=== PATIENT | male | born 2000 | race Caucasian/White ===

== ENCOUNTER 2022-07-18 04:59 | Emergency (ER) | payer SELFPAY ==
[2022-07-18 05:41] VITALS: BP 112/64; PULSE 100; RESP 16; TEMP 38.6; O2SAT 100; BMI 16.7
[2022-07-18] MEDS: Acetaminophen 325 MG TABLET 975 MG PO (07:11)
[2022-07-18 07:20] VITALS: TEMP 38.9
[2022-07-18 08:00] VITALS: TEMP 37.4
[2022-07-18 08:00] LABS: Influenza A PCR NEGATIVE (Negative); Influenza B PCR NEGATIVE (Negative); Resp Syncy Virus RNA Qual PCR NEGATIVE (Negative); SARS COV2 PCR INHOUSE NEGATIVE (Negative)
--- NOTE | 2022-07-18 09:03 | ED_ITS ---
HPI - Fever General Chief Complaint: Fever Stated Complaint: fever even after medication, flu like Time Seen by Provider: 07/18/22 09:02 Source: patient Mode of arrival: ambulatory Limitations: no limitations History of Present Illness HPI Narrative: 21-year-old male presents to the emergency department for fever and headache. Patient states fever did come down after taking ibuprofen and he came to the ER. Patient had been in the ER for 4 hours prior to being seen. Patient had swab sent he is flu RSV and COVID negative. Patient denies chest pain or cough patient otherwise looks well has normal vitals his fever has defervesced patient has no other complaints he states his headache is improving. MD elicited complaint: fever Related Data Allergies Allergy/AdvReac Type Severity Reaction Status Date / Time No Known Allergies Allergy Verified 07/18/22 05:44 Review of Systems Review of Systems: Review of systems: General: Patient denies any fever chills recent illness or falls Musculoskeletal: Denies back pain or body aches or other injuries HEENT: denies headache, runny nose, ear pain Respiratory: denies shortness of breath, cough Cardiovascular: no chest pain or palpitations : denies dysuria, frequency Abdomen: no nausea vomiting denies abdominal pain Extremities: no swelling, no pain Skin: no diaphoresis Yes all other systems are reviewed and are negative PMFSH Social History Social History Advance Directives: No Physical Exam Vital Signs: Vital Signs: Last Vital Signs Temp 99.3 F 07/18/22 08:00 Pulse 100 07/18/22 05:41 Resp 16 07/18/22 05:41 BP 112/64 07/18/22 05:41 Pulse Ox 100 07/18/22 05:41 O2 Del Method 07/18/22 05:41 BMI result Body Mass Index 16.7 General: Well-appearing well-nourished in no signs of distress HEENT: Normocephalic atraumatic Neck: No signs of JVD, no masses no tenderness or lymphadenopathy Cardiovascular: Regular rate and rhythm Respiratory: Clear to auscultation bilaterally Abdomen: Soft nontender no masses rectal exam performed guiac negative director of quality confirmed. Extremities: Normal pedal pulses no signs of edema Skin: Dry warm no rashes Back: No tenderness full ROM Medications Administered Discontinued Medications Generic Name Dose Route Start Last Admin Trade Name Freq PRN Reason Stop Dose Admin Acetaminophen 975 mg 07/18/22 07:04 07/18/22 07:11 Acetaminophen 325 Mg Tablet PO 07/18/22 07:05 975 mg ONCE ONE Administration Medical Decision Making Medical Decision Making [facility] Narrative: Well-appearing male viral syndrome flu and COVID are negative all those are not perfect test I educated the patient follow-up Tylenol and ibuprofen for his fever Differential Diagnosis Differential Diagnoses: The differential diagnosis associated with the presentation includes Influenza COVID other viral illness including RSV patient did not look toxic the patient has his headache is here his vitals stabilized further workup that is necessary Lab Data Labs: Lab Results 07/18/22 Range/Units 07:10 Influenza Type A (PCR) NEGATIVE (Negative) Influenza Type B (PCR) NEGATIVE (Negative) RSV RNA Qual (PCR) NEGATIVE (Negative) SARS-CoV-2 RNA (RT-PCR) NEGATIVE (Negative) Discharge Plan Discharge Clinical Impression: Viral infection Patient Disposition: Home, Self-Care Instructions: Viral Syndrome (ED) Additional Instructions: Please stay hydrated take tylenol and or ibuprofen for your headache. If you have any other concerns please return to the ED.
[2022-07-18] MEDS: Ketorolac Tromethamine 30 MG/ML VIAL 15 MG IM (09:23)
== END 2022-07-18 09:27 | disposition home or self-care (01) ==
PROVIDERS: Emergency Provider Student in an Organized Health Care Education/Training Program
DX: B34.9 Viral infection, unspecified (principal); R50.9 Fever, unspecified; Z20.822 Contact with and (suspected) exposure to COVID-19
CPT/HCPCS: 0241U; 96372; 99284; J1885

== ENCOUNTER 2022-07-20 13:38 | Emergency (ER) | payer OTHER, SELFPAY ==
--- NOTE | 2022-07-20 13:45 | ED_ITS ---
HPI - General Adult General Chief complaint: Skin/Abscess/Foreign Body <LUPE Bassett - Last Filed: 07/20/22 13:52> Stated complaint: rash quest allergic reaction medication <LUPE Bassett - Last Filed: 07/20/22 13:52> Time Seen by Provider: 07/20/22 16:09 <LUPE Bassett - Last Filed: 07/20/22 13:52> Source: patient <Idalia Mendez NP - Last Filed: 07/21/22 01:02> Mode of arrival: ambulatory <Idalia Mendez NP - Last Filed: 07/21/22 01:02> Limitations: no limitations <Idalia Mendez NP - Last Filed: 07/21/22 01:02> History of Present Illness HPI narrative: 21-year-old male presents with full body rash that started 2 days ago. He does have some upper respiratory symptoms, sore throat, photosensitivity, and headache. He was evaluated in this emergency department 2 days ago and diagnosed with a viral syndrome. <Idalia Mendez NP - Last Filed: 07/21/22 01:02> Onset (ago): day(s) (2) <Idalia Mendez NP - Last Filed: 07/21/22 01:02> Location: head, neck, chest, back, abdomen, left, right, upper extremity and lower extremity <Idalia Mendez NP - Last Filed: 07/21/22 01:02> Severity: moderate <Idalia Mendez NP - Last Filed: 07/21/22 01:02> Severity scale (1-10): 7 <Idalia Mendez NP - Last Filed: 07/21/22 01:02> Quality: aching <Idalia Mendez NP - Last Filed: 07/21/22 01:02> Pain Consistency: constant <Idalia Mendez NP - Last Filed: 07/21/22 01:02> Relieving factors: none <Idalia Mendez NP - Last Filed: 07/21/22 01:02> Exacerbating factors: movement <Idalia Mendez NP - Last Filed: 07/21/22 01:02> Associated symptoms: cough, headaches, malaise and rash <Idalia Mendez NP - Last Filed: 07/21/22 01:02> Treatments prior to arrival: none <Idalia Mendez NP - Last Filed: 07/21/22 01:02> Related Data Home medications: Previous Rx's Medication Instructions Recorded cefuroxime axetil 500 mg tablet 500 mg PO Q12H 10 days #20 tabs 07/20/22 <LUPE Bassett - Last Filed: 07/20/22 13:52> Allergies/adverse reactions: Allergies Allergy/AdvReac Type Severity Reaction Status Date / Time Penicillins [PCN] Allergy Unknown Verified 07/20/22 13:45 <LUPE Bassett - Last Filed: 07/20/22 13:52> Review of Systems Review of Systems: Constitutional: positive Fever, positive Chills, positive fatigue, positive Malaise ENT/Mouth: positive sore throat, positive runny nose Eyes: No Discharge Cardiovascular: No Chest Pain, No SOB Respiratory: Positive Cough, No Sputum, No Wheezing, No Dyspnea Gastrointestinal: No Nausea, No Vomiting, No Diarrhea Musculoskeletal: positive Myalgia Skin: Positive diffuse full-body rash Neuro: Positive Headache <Idalia Mendez NP - Last Filed: 07/21/22 01:02> Yes all other systems are reviewed and are negative <Idalia Mendez NP - Last Filed: 07/21/22 01:02> [facility] Past Medical History Attestation statement: The following information was validated with the patient. <Idalia Mendez NP - Last Filed: 07/21/22 01:02> Source: old records reviewed <Idalia Mendez NP - Last Filed: 07/21/22 01:02> Social History Social History: Social History Advance Directives: No Advance Directives Information Provided: No <LUPE Bassett - Last Filed: 07/20/22 13:52> Physical Exam ED Vital Signs: Vital Signs - 24 hr 07/20/22 13:46 07/20/22 16:47 Temperature 97.1 F 98.9 F Pulse Rate 88 93 Respiratory Rate 18 20 Blood Pressure 121/68 104/71 Pulse Oximetry 97 99 Oxygen Delivery Method Room Air Room Air BMI result Body Mass Index 18.3 <LUPE Bassett Last Filed: 07/20/22 13:52> Vital Signs - 24 hr 07/20/22 13:46 07/20/22 16:47 Temperature 97.1 F 98.9 F Pulse Rate 88 93 Respiratory Rate 18 20 Blood Pressure 121/68 104/71 Pulse Oximetry 97 99 Oxygen Delivery Method Room Air Room Air BMI result Body Mass Index 18.3 <Idalia Mendez NP - Last Filed: 07/21/22 01:02> Appearance: Alert. Oriented X3. Mild distress. Eyes: Pupils equal, round and reactive to light. ENT: Pharynx erythematous bilateral tonsillar exudates. No tonsillar swelling. Uvula within normal limits. Neck: Normal inspection. Neck supple. No vertebral tenderness. No nuchal rigidity. No cervical lymphadenopathy. Full range of motion to the neck. CVS: Normal heart rate and rhythm. Pulses normal. Respiratory: No respiratory distress. Breath sounds normal. Abdomen: Soft and nontender. Skin: Refer to photographic evidence. Extremities: No lower extremity edema. Gait well-balanced well coordinated. Neuro: No motor deficit. No sensory deficit. Cranial nerves 2-12 intact. <CASSANDRA Jasso Last Filed: 07/21/22 01:02> Course Course Course Narrative: RME performed by Marti Hubbard PA-C. Patient is a 21 year old male presenting to the ED with diffuse body rash, sore throat, and feeling generally unwell. Patient was seen here 2 days ago and discharged with a viral illness. Labs and swabs ordered. Patient placed back in waiting room pending results and room availability. <LUPE Bassett Last Filed: 07/20/22 13:52> RME performed by Marti Hubbard PA-C. Patient is a 21 year old male presenting to the ED with diffuse body rash, sore throat, and feeling generally unwell. Patient was seen here 2 days ago and discharged with a viral illness. Labs and swabs ordered. Patient placed back in waiting room pending results and room availability. 16:20 patient presents with a classic looking diffuse papular erythema, slightly raised consistent with scarlet fever verses strep. Patient is allergic to penicillins, will give cefuroxime and Benadryl. Added on Monospot testing. Patient is negative for rapid strep however pharyngeal exam indicates bilateral tonsillar swelling with exudates and erythema to both tonsils and pharynx. Lung sounds are clear to auscultation all lobes, abdomen soft nontender, no hepatosplenomegaly noted. Patient does report a headache, has full range of motion to his neck, no vertebral tenderness, no meningeal signs, no nuchal rigidity. Low likelihood of meningitis at this time. Plan of care to discharge home. Patient verbalized. Verbalized understanding of signs symptoms indicating need for emergent intervention. <Idalia Mendez NP - Last Filed: 07/21/22 01:02> Medications Administered Discontinued Medications Generic Name Dose Route Start Last Admin Trade Name Freq PRN Reason Stop Dose Admin Acetaminophen 650 mg 07/20/22 14:02 07/20/22 14:06 Acetaminophen 325 Mg Tablet PO 07/20/22 14:03 650 mg ONCE ONE Administration Acetaminophen 650 mg 07/20/22 16:28 07/20/22 17:19 Acetaminophen 325 Mg Tablet PO 07/20/22 16:29 Not Given ONCE ONE Cefuroxime Axetil 500 mg 07/20/22 16:23 07/20/22 16:46 Cefuroxime Axetil 500 Mg Tablet PO 07/20/22 16:24 500 mg ONCE ONE Administration Diphenhydramine HCl 50 mg 07/20/22 16:28 07/20/22 16:46 Diphenhydramine Hcl 25 Mg Capsule PO 07/20/22 16:29 50 mg ONCE ONE Administration <LUPE Bassett - Last Filed: 07/20/22 13:52> Medications Administered Discontinued Medications Generic Name Dose Route Start Last Admin Trade Name Freq PRN Reason Stop Dose Admin Acetaminophen 650 mg 07/20/22 14:02 07/20/22 14:06 Acetaminophen 325 Mg Tablet PO 07/20/22 14:03 650 mg ONCE ONE Administration Acetaminophen 650 mg 07/20/22 16:28 07/20/22 17:19 Acetaminophen 325 Mg Tablet PO 07/20/22 16:29 Not Given ONCE ONE Cefuroxime Axetil 500 mg 07/20/22 16:23 07/20/22 16:46 Cefuroxime Axetil 500 Mg Tablet PO 07/20/22 16:24 500 mg ONCE ONE Administration Diphenhydramine HCl 50 mg 07/20/22 16:28 07/20/22 16:46 Diphenhydramine Hcl 25 Mg Capsule PO 07/20/22 16:29 50 mg ONCE ONE Administration <Idalia Mendez NP - Last Filed: 07/21/22 01:02> Medical Decision Making Differential Diagnosis Differential Diagnoses: The differential diagnosis associated with the presentation includes <Idalia Mendez NP - Last Filed: 07/21/22 01:02> Scarlet fever, strep, [place] Ash, viral syndrome <Idalia Mendez NP - Last Filed: 07/21/22 01:02> Admission/Observation Consideration of admission/observation: Escalation of care including admission/observation considered <Idalia Mendez NP - Last Filed: 07/21/22 01:02> Admission not required or considered <Idalia Mendez NP - Last Filed: 07/21/22 01:02> Lab Data MDM Lab Attestation statement: I reviewed the patient's lab results. <Idalia Mendez NP - Last Filed: 07/21/22 01:02> Result Diagrams: 07/20/22 Unknown 07/20/22 Unknown <LUPE Bassett - Last Filed: 07/20/22 13:52> Labs: Lab Results 07/20/22 07/20/22 07/20/22 Range/Units Unknown Unknown Unknown WBC 3.7 L (4.8-10.8) X10*3/uL RBC 4.94 (4.60-5.80) X10*6/uL Hgb 15.3 (14.0-18.0) g/dl Hct 45.8 (42.0-52.0) % MCV 92.7 (80.0-98.0) fL MCH 31.0 (27.0-33.0) pg MCHC 33.4 (31.0-36.0) g/dl RDW 11.4 (11.0-16.0) % Plt Count 165 (160-400) X10*3/uL MPV 9.4 (9.4-12.4) fL Immature Gran % (Auto) 0.3 (0.0-0.4) % Neut % (Auto) 82.8 H (45-73) % Lymph % (Auto) 13.4 L (20-40) % Travis % (Auto) 3.2 (2-11) % Eos % (Auto) 0.0 (0-4) % Baso % (Auto) 0.3 (0-2) % Lymph # (Auto) 0.5 L (1.2-4.9) X10*3/uL Travis # (Auto) 0.1 (0.1-1.2) X10*3/uL Eos # (Auto) 0.0 (0.0-0.4) X10*3/uL Baso # (Auto) 0.0 (0.0-0.2) X10*3/uL Abs Immat Gran (auto) 0.01 (0.00-0.03) X10*3/uL Absolute Neuts (auto) 3.1 (2.0-8.3) x10*3/uL Absolute Nucleated RBC 0.000 (0.0-0.012) X10*3/uL Nucleated RBC % (auto) 0.0 (0.0-0.2) /100WBC ESR 6 (0-15) MM/HR Sodium 137 (135-145) mmol/L Potassium 4.0 (3.3-5.1) mmol/L Chloride 102 (96-108) mmol/L Carbon Dioxide 26 (22-29) mmol/L Anion Gap 13 (12-20) BUN 8 L (9-16) mg/dL Creatinine 0.94 (0.5-1.4) mg/dL Estim Creat Clear Calc 102.3 Estimated GFR > 60 Random Glucose 98 (60-115) mg/dL Calcium 9.1 (8.4-10.2) mg/dL Total Bilirubin 0.7 (0.0-1.0) mg/dL AST 24 (5-37) U/L ALT 12 (0-40) U/L Alkaline Phosphatase 88 (39-117) U/L C-Reactive Protein 2.02 H (< or = 0.50) mg/dL Total Protein 6.9 (6.5-8.0) g/dL Albumin 4.3 (3.5-5.0) g/dL Influenza Type A (PCR) (Negative) Influenza Type B (PCR) (Negative) RSV RNA Qual (PCR) (Negative) SARS-CoV-2 RNA (RT-PCR) (Negative) S. pyogenes GrpA SOFIA (Negative) 07/20/22 07/20/22 Range/Units Unknown Unknown WBC (4.8-10.8) X10*3/uL RBC (4.60-5.80) X10*6/uL Hgb (14.0-18.0) g/dl Hct (42.0-52.0) % MCV (80.0-98.0) fL MCH (27.0-33.0) pg MCHC (31.0-36.0) g/dl RDW (11.0-16.0) % Plt Count (160-400) X10*3/uL MPV (9.4-12.4) fL Immature Gran % (Auto) (0.0-0.4) % Neut % (Auto) (45-73) % Lymph % (Auto) (20-40) % Travis % (Auto) (2-11) % Eos % (Auto) (0-4) % Baso % (Auto) (0-2) % Lymph # (Auto) (1.2-4.9) X10*3/uL Travis # (Auto) (0.1-1.2) X10*3/uL Eos # (Auto) (0.0-0.4) X10*3/uL Baso # (Auto) (0.0-0.2) X10*3/uL Abs Immat Gran (auto) (0.00-0.03) X10*3/uL Absolute Neuts (auto) (2.0-8.3) x10*3/uL Absolute Nucleated RBC (0.0-0.012) X10*3/uL Nucleated RBC % (auto) (0.0-0.2) /100WBC ESR (0-15) MM/HR Sodium (135-145) mmol/L Potassium (3.3-5.1) mmol/L Chloride (96-108) mmol/L Carbon Dioxide (22-29) mmol/L Anion Gap (12-20) BUN (9-16) mg/dL Creatinine (0.5-1.4) mg/dL Estim Creat Clear Calc Estimated GFR Random Glucose (60-115) mg/dL Calcium (8.4-10.2) mg/dL Total Bilirubin (0.0-1.0) mg/dL AST (5-37) U/L ALT (0-40) U/L Alkaline Phosphatase (39-117) U/L C-Reactive Protein (< or = 0.50) mg/dL Total Protein (6.5-8.0) g/dL Albumin (3.5-5.0) g/dL Influenza Type A (PCR) NEGATIVE (Negative) Influenza Type B (PCR) NEGATIVE (Negative) RSV RNA Qual (PCR) NEGATIVE (Negative) SARS-CoV-2 RNA (RT-PCR) NEGATIVE (Negative) S. pyogenes GrpA SOFIA Negative (Negative) <LUPE Bassett - Last Filed: 07/20/22 13:52> Lab Results 07/20/22 07/20/22 07/20/22 Range/Units Unknown Unknown Unknown WBC 3.7 L (4.8-10.8) X10*3/uL RBC 4.94 (4.60-5.80) X10*6/uL Hgb 15.3 (14.0-18.0) g/dl Hct 45.8 (42.0-52.0) % MCV 92.7 (80.0-98.0) fL MCH 31.0 (27.0-33.0) pg MCHC 33.4 (31.0-36.0) g/dl RDW 11.4 (11.0-16.0) % Plt Count 165 (160-400) X10*3/uL MPV 9.4 (9.4-12.4) fL Immature Gran % (Auto) 0.3 (0.0-0.4) % Neut % (Auto) 82.8 H (45-73) % Lymph % (Auto) 13.4 L (20-40) % Travis % (Auto) 3.2 (2-11) % Eos % (Auto) 0.0 (0-4) % Baso % (Auto) 0.3 (0-2) % Lymph # (Auto) 0.5 L (1.2-4.9) X10*3/uL Travis # (Auto) 0.1 (0.1-1.2) X10*3/uL Eos # (Auto) 0.0 (0.0-0.4) X10*3/uL Baso # (Auto) 0.0 (0.0-0.2) X10*3/uL Abs Immat Gran (auto) 0.01 (0.00-0.03) X10*3/uL Absolute Neuts (auto) 3.1 (2.0-8.3) x10*3/uL Absolute Nucleated RBC 0.000 (0.0-0.012) X10*3/uL Nucleated RBC % (auto) 0.0 (0.0-0.2) /100WBC ESR 6 (0-15) MM/HR Sodium 137 (135-145) mmol/L Potassium 4.0 (3.3-5.1) mmol/L Chloride 102 (96-108) mmol/L Carbon Dioxide 26 (22-29) mmol/L Anion Gap 13 (12-20) BUN 8 L (9-16) mg/dL Creatinine 0.94 (0.5-1.4) mg/dL Estim Creat Clear Calc 102.3 Estimated GFR > 60 Random Glucose 98 (60-115) mg/dL Calcium 9.1 (8.4-10.2) mg/dL Total Bilirubin 0.7 (0.0-1.0) mg/dL AST 24 (5-37) U/L ALT 12 (0-40) U/L Alkaline Phosphatase 88 (39-117) U/L C-Reactive Protein 2.02 H (< or = 0.50) mg/dL Total Protein 6.9 (6.5-8.0) g/dL Albumin 4.3 (3.5-5.0) g/dL Influenza Type A (PCR) (Negative) Influenza Type B (PCR) (Negative) RSV RNA Qual (PCR) (Negative) SARS-CoV-2 RNA (RT-PCR) (Negative) S. pyogenes GrpA SOFIA (Negative) 07/20/22 07/20/22 Range/Units Unknown Unknown WBC (4.8-10.8) X10*3/uL RBC (4.60-5.80) X10*6/uL Hgb (14.0-18.0) g/dl Hct (42.0-52.0) % MCV (80.0-98.0) fL MCH (27.0-33.0) pg MCHC (31.0-36.0) g/dl RDW (11.0-16.0) % Plt Count (160-400) X10*3/uL MPV (9.4-12.4) fL Immature Gran % (Auto) (0.0-0.4) % Neut % (Auto) (45-73) % Lymph % (Auto) (20-40) % Travis % (Auto) (2-11) % Eos % (Auto) (0-4) % Baso % (Auto) (0-2) % Lymph # (Auto) (1.2-4.9) X10*3/uL Travis # (Auto) (0.1-1.2) X10*3/uL Eos # (Auto) (0.0-0.4) X10*3/uL Baso # (Auto) (0.0-0.2) X10*3/uL Abs Immat Gran (auto) (0.00-0.03) X10*3/uL Absolute Neuts (auto) (2.0-8.3) x10*3/uL Absolute Nucleated RBC (0.0-0.012) X10*3/uL Nucleated RBC % (auto) (0.0-0.2) /100WBC ESR (0-15) MM/HR Sodium (135-145) mmol/L Potassium (3.3-5.1) mmol/L Chloride (96-108) mmol/L Carbon Dioxide (22-29) mmol/L Anion Gap (12-20) BUN (9-16) mg/dL Creatinine (0.5-1.4) mg/dL Estim Creat Clear Calc Estimated GFR Random Glucose (60-115) mg/dL Calcium (8.4-10.2) mg/dL Total Bilirubin (0.0-1.0) mg/dL AST (5-37) U/L ALT (0-40) U/L Alkaline Phosphatase (39-117) U/L C-Reactive Protein (< or = 0.50) mg/dL Total Protein (6.5-8.0) g/dL Albumin (3.5-5.0) g/dL Influenza Type A (PCR) NEGATIVE (Negative) Influenza Type B (PCR) NEGATIVE (Negative) RSV RNA Qual (PCR) NEGATIVE (Negative) SARS-CoV-2 RNA (RT-PCR) NEGATIVE (Negative) S. pyogenes GrpA SOFIA Negative (Negative) <Idalia Mendez NP - Last Filed: 07/21/22 01:02> Independent Historian Clinical information obtained from an independent historian. History obtained from or confirmed by: Spouse <Idalia Mendez NP - Last Filed: 07/21/22 01:02> External Record Review External record reviewed: Outpatient record <Idalia Mendez NP - Last Filed: 07/21/22 01:02> Prescription Management I considered prescription management with: Pain Medication and Antibiotic <Idalia Mendez NP - Last Filed: 07/21/22 01:02> Discharge Plan Discharge Clinical Impression: Scarlet fever <LUPE Bassett - Last Filed: 07/20/22 13:52> Patient Disposition: Home, Self-Care <LUPE Bassett - Last Filed: 07/20/22 13:52> Instructions: Scarlet Fever (ED) <LUPE Bassett - Last Filed: 07/20/22 13:52> Additional Instructions: Lo evaluaron por un sarpullido compatible con brendon infecci?n estreptoc?cica. [place] cefuroxima 500 mg dos veces al d?a elias los pr?ximos 10 d?as. [place] Benadryl 50 mg cada 8 horas seg?n sea necesario para la picaz?n. [place] Tylenol 650 mg cada 6 horas y Motrin 600 mg cada 6 horas seg?n sea necesario para controlar el dolor y la fiebre. Considere jason estos medicamentos con 3 horas de diferencia para controlar el dolor y la fiebre cada 3 horas. Anote a qu? hora lorraine estos medicamentos para evitar brendon sobredosis accidental. [place] por elegir daisy departamento de emergencias para cabrera evaluaci?n. Por favor, muna un seguimiento con el m?dico de atenci?n primaria seg?n sea necesario. Regrese al departamento de emergencias por cualquier s?ntoma nuevo, preocupante o que empeore. You were evaluated for a rash consistent with streptococcal infection. Please take cefuroxime 500 mg twice a day for the next 10 days. Take Benadryl 50 mg every 8 hours as needed for itching. Alternate Tylenol 650 mg every 6 hours and Motrin 600 mg every 6 hours as needed for pain and fever management. Consider taking these medications 3 hours apart so you have pain and fever management every 3 hours. Write down what time you take these medications to prevent accidental overdose. Thank you for choosing this emergency department for evaluation. Please follow-up with primary care physician as needed. Return to the emergency department for any new, concerning, or worsening symptoms. <LUPE Bassett - Last Filed: 07/20/22 13:52> Prescriptions: New cefuroxime axetil 500 mg tablet 500 mg PO Q12H 10 Days Qty: 20 0RF <LUPE Bassett - Last Filed: 07/20/22 13:52> Stand Alone Forms: Work/School Release <LUPE Bassett - Last Filed: 07/20/22 13:52> Interventions: ED Discharge Assessment Last Done: 07/20/22 17:44 <LUPE Bassett - Last Filed: 07/20/22 13:52> Discharge Date/Time: 07/20/22 17:44 <LUPE Bassett - Last Filed: 07/20/22 13:52>
[2022-07-20 13:46] VITALS: BP 121/68; PULSE 88; RESP 18; TEMP 36.2; O2SAT 97; BMI 18.3
[2022-07-20 14:06] LABS: MANUAL DIFF FLAG NO
[2022-07-20] MEDS: Acetaminophen 325 MG TABLET 650 MG PO (14:06)
[2022-07-20 14:07] LABS: Basophils Percent Auto 0.3 % (0-2); Hematocrit 45.8 % (42.0-52.0); Hemoglobin 15.3 g/dl (14.0-18.0); Imm Gran Abs Auto 0.01 X10*3/uL (0.00-0.03); Imm Gran Pct Auto 0.3 % (0.0-0.4); Lymphocytes Absolute Auto 0.5 X10*3/uL (1.2-4.9); Lymphocytes Percent Auto 13.4 % (20-40); Mean Corpuscular HGB Conc 33.4 g/dl (31.0-36.0); Mean Corpuscular Volume 92.7 fL (80.0-98.0); Mean Platelet Volume 9.4 fL (9.4-12.4); Monocytes Absolute Auto 0.1 X10*3/uL (0.1-1.2); Monocytes Percent Auto 3.2 % (2-11); Neutrophils Absolute Auto 3.1 x10*3/uL (2.0-8.3); Neutrophils Percent Auto 82.8 % (45-73); Platelet Count 165 X10*3/uL (160-400); Red Blood Count 4.94 X10*6/uL (4.60-5.80); Red Cell Distribution Width 11.4 % (11.0-16.0); White Blood Count 3.7 X10*3/uL (4.8-10.8)
[2022-07-20 14:17] LABS: IDNOW Serial# 6674DD1D; Strep A Nucleic Acid Negative (Negative)
[2022-07-20 14:23] LABS: Alanine Aminotransferase 12 U/L (0-40); Albumin Level 4.3 g/dL (3.5-5.0); Alkaline Phosphatase 88 U/L (39-117); Anion Gap 13 (12-20); Aspartate Amino Transferase 24 U/L (5-37); Bilirubin Total 0.7 mg/dL (0.0-1.0); Blood Urea Nitrogen 8 mg/dL (9-16); C Reactive Protein 2.02 mg/dL (< or = 0.50); Calcium 9.1 mg/dL (8.4-10.2); Carbon Dioxide 26 mmol/L (22-29); Chloride 102 mmol/L (96-108); Creatinine Clr Calc Pharmacy 102.3; Estimated Glomerular Filt Rate > 60; Glucose Random 98 mg/dL (60-115); Sodium 137 mmol/L (135-145); Total Protein 6.9 g/dL (6.5-8.0)
[2022-07-20 14:50] LABS: Influenza A PCR NEGATIVE (Negative); Influenza B PCR NEGATIVE (Negative); Resp Syncy Virus RNA Qual PCR NEGATIVE (Negative); SARS COV2 PCR INHOUSE NEGATIVE (Negative)
[2022-07-20 14:54] LABS: Erythrocyte Sedimentation Rate 6 MM/HR (0-15)
[2022-07-20] MEDS: diphenhydrAMINE HCL 25 MG CAPSULE 50 MG PO (16:46)
[2022-07-20 16:47] VITALS: BP 104/71; PULSE 93; RESP 20; TEMP 37.2; O2SAT 99
== END 2022-07-20 17:44 | disposition home or self-care (01) ==
PROVIDERS: Physician Assistant Medical; Emergency Provider Emergency Medicine
DX: A38.9 Scarlet fever, uncomplicated (principal); Z20.822 Contact with and (suspected) exposure to COVID-19; Z20.828 Contact with and (suspected) exposure to other viral communicable diseases
CPT/HCPCS: 0241U; 80053; 85025; 85652; 86140; 87651; 99283; 99284

== ENCOUNTER 2023-05-14 12:35 | Emergency (ER) | payer MEDICAID, SELFPAY ==
[2023-05-14 13:31] VITALS: BP 118/68; PULSE 78; RESP 16; TEMP 36.9; O2SAT 98; BMI 15.9
--- NOTE | 2023-05-14 13:32 | ED_ITS ---
HPI - URI/Sore Throat General Chief Complaint: Dental/Oral Stated Complaint: ulcer back in mouth Time Seen by Provider: 05/14/23 14:05 Source: patient Mode of arrival: ambulatory Limitations: no limitations History of Present Illness HPI Narrative: Patient is a 22-year-old male with no significant PMH presenting complaint of an ulcer in the back of my throat x 1.5 weeks with associated sore throat and headache. Has tried tyelnol and ibuprofen with minimal relief. Tolerating solids with some pain and liquids well. No recent travel or sick contacts. UTD on immunizations. Denies smoking. Denies fever, chills, myalgias, fatigue, dizziness, weakness, dysphagia, trouble breathing, chest pain, shortness of breath, abdominal pain, and N/V/D. Related Data Previous Rx's Medication Instructions Recorded cefuroxime axetil 500 mg tablet 500 mg PO Q12H 10 days #20 tabs 07/20/22 naproxen 500 mg tablet 500 mg PO BID #14 tabs 05/14/23 Allergies Allergy/AdvReac Type Severity Reaction Status Date / Time Penicillins [PCN] Allergy Unknown Verified 07/20/22 13:45 Review of Systems Review of Systems: Constitutional : No Weight loss, No Fever, No Chills, No Fatigue, No Malaise ENT/Mouth : No sore throat, No Rhinorrhea Eyes: No Eye Pain, No Swelling, No Redness Cardiovascular : No Chest Pain, No SOB, No Dyspnea on Exertion, No Orthopnea, No Edema, No Palpitations Respiratory : No Cough, No Sputum, No Wheezing Gastrointestinal : No Nausea, No Vomiting, No Diarrhea, No Constipation, No abdominal Pain, No Hematochezia, No Melena Genitourinary : No Dysuria, No Urinary Frequency, No Hematuria, Musculoskeletal : No joint pain, No Myalgias, No Joint Swelling Skin : No Skin Lesions, No rash Neuro : No Weakness, No Numbness, No Dizziness, No Headache Yes all other systems are reviewed and are negative [facility] Past Medical History Attestation statement: The following information was validated with the patient. Source: old records reviewed and nursing notes reviewed Social History Social History Advance Directives: No Advance Directives Information Provided: No Physical Exam Vital Signs: Vital Signs: Last Vital Signs Temp 98.4 F 05/14/23 13:31 Pulse 78 05/14/23 13:31 Resp 16 05/14/23 13:31 BP 118/68 05/14/23 13:31 Pulse Ox 98 05/14/23 13:31 O2 Del Method Room Air 05/14/23 13:31 BMI result Body Mass Index 15.9 vss Appearance: Alert.? Oriented X3.? No acute distress.? Head: Normocephalic, atraumatic, no step-offs or deformities Eyes: Pupils equal, round and reactive to light.? ENT: Pharynx erythematous.?Erupting 3rd molar on the left lower jaw. External ears normal, TMs normal bilaterally and EAC's normal. No pain with manipulation of external ears bilaterally. No mastoid tenderness. Neck: Anterior cervical lymphadenopathy. Normal inspection.? Neck supple.? CVS: Normal heart rate and rhythm.? Pulses normal.? Respiratory: No respiratory distress.? Breath sounds normal.? Abdomen: Soft and nontender.? Skin: Skin warm and dry.? Normal skin color.? Normal skin turgor.? Extremities: No lower extremity edema.? No calf ttp. 5/5 strength to bilateral upper and lower extremities Back: No midline tenderness, no C-spine tenderness, full range of motion, no CVA tenderness bilaterally Neuro: Oriented X 3.? No motor deficit.? No sensory deficit. Course Course Course Narrative: RME - 22 yo male presenting for evaluation of an ulcer in the back of my throat for the last 1.5 weeks. He also reports a sore throat. Exam more c/w left lower molar breaking through the gums but posterior pharynx also erythematous. Plan: strep swab Reevaluation(s) Reevaluation #1: Strep negative. Patient reports to me that primarily it is hurting in his left lower gum region, no signs of abscess this is likely tooth eruption. He tells me he just found out that he does have insurance and now he is going to go to the [facility] to schedule an appointment with a dentist as soon as possible. No signs of daughter airway speaking in full sentences controlling secretions well. Educated patient on diagnosis and treatment plan, answered all question, patient verbalizes understanding. At this time patient will be discharged home, advised to return with new or worsening symptoms. Educated on worrisome signs and symptoms and when to return. At this time I feel comfortable discharge home. Time: 15:13 Medical Decision Making Medical Decision Making [facility] Narrative: 22-year-old male presenting complaint of an ulcer in the back of my throat x 1.5 weeks with associated sore throat and headache PE w/ erythematous pharynx, anterior cervical lymphadenopathy, erupting 3rd molar on the left lower jaw Serology negative Likely viral pharyngitis vs. aphthous ulcer vs. molar eruption. Unlikely strep pharyngitis, mononucleosis, periapical abscess, peritonsilar abscess, and threatened airway. Plan discharge with supportive measures and information on dental follow-up. Will give naproxen. Differential Diagnosis Differential Diagnoses: The differential diagnosis associated with the presentation includes Likely viral pharyngitis vs. aphthous ulcer vs. molar eruption. Unlikely strep pharyngitis, mononucleosis, periapical abscess, peritonsilar abscess, and threatened airway. Admission/Observation Consideration of admission/observation: Escalation of care including admission/observation considered unlikley Lab Data [facility] Lab Attestation statement: I reviewed the patient's lab results. Labs: Lab Results 05/14/23 Range/Units 13:36 S. pyogenes GrpA SOFIA Negative (Negative) Independent Historian Clinical information obtained from an independent historian. History obtained from or confirmed by: Other (significant historian ) Discharge Plan Discharge Clinical Impression: Pain of molar, Acute viral pharyngitis Patient Disposition: Home, Self-Care Instructions: Pharyngitis (ED), Toothache (ED) Additional Instructions: Take your medications as prescribed. If you were prescribed antibiotics today, it is important that you take your medication to their entirety, do not skip any doses, do not finish them early. Follow-up with your primary care provider this week. Return to the emergency department with new or worsening symptoms. Such as fevers, chills, chest pain, shortness of breath, nausea, vomiting, dizziness, headache, vision changes, lethargy In case of emergency call 911 Call [phone] [facility] as discussed to make an apt with a dentist Use salt water gargles as needed for pain relief. Follow up with a dentist as soon as possible. Alburtis abel medicamentos seg?n lo recetado. Si hoy te recetaron antibi?ticos, es importante que tomes tu medicaci?n en cabrera totalidad, no te saltes ninguna dosis, no las termines antes de tiempo. Valerie un seguimiento con cabrera proveedor de atenci?n primaria esta semana. Regrese al departamento de emergencias si los s?ntomas son nuevos o empeoran. Allison fiebre, escalofr?os, dolor de pecho, dificultad para respirar, n?useas, v?mitos, mareos, dolor de jules, cambios en la visi?n, letargo. En kenny de emergencia llame al 911. Llame al [phone] [facility] lokesh se mencion? para programar brendon adriana con un dentista. Utilice g?rgaras de agua salada seg?n sea necesario para aliviar el dolor. Valerie un seguimiento con un dentista lo antes posible. Prescriptions: New naproxen 500 mg tablet 500 mg PO BID Qty: 14 0RF No Action cefuroxime axetil 500 mg tablet 500 mg PO Q12H 10 Days Qty: 20 0RF Referrals: Physician,None [Primary Care Provider] - 2 days Stand Alone Forms: Work/School Release
[2023-05-14 13:53] LABS: IDNOW Serial# 08D9AD1C; Strep A Nucleic Acid Negative (Negative)
--- NOTE | 2023-05-14 14:41 | ED.GENADULT ---
HPI - General Adult General Chief complaint: Dental/Oral Stated complaint: ulcer back in mouth Time Seen by Provider: 05/14/23 14:05 Source: patient, family, RN notes reviewed and old records reviewed Mode of arrival: ambulatory Limitations: no limitations History of Present Illness HPI narrative: Patient is a 22-year-old male with no significant PMH presenting complaint of an ulcer in the back of my throat x 1.5 weeks with associated sore throat and headache. Has tried tyelnol and ibuprofen with minimal relief. Tolerating solids with some pain and liquids well. No recent travel or sick contacts. UTD on immunizations. Denies smoking. Denies fever, chills, myalgias, fatigue, dizziness, weakness, dysphagia, trouble breathing, chest pain, shortness of breath, abdominal pain, and N/V/D. Related Data Previous Rx's Medication Instructions Recorded cefuroxime axetil 500 mg tablet 500 mg PO Q12H 10 days #20 tabs 07/20/22 Allergies Allergy/AdvReac Type Severity Reaction Status Date / Time Penicillins [PCN] Allergy Unknown Verified 07/20/22 13:45 Review of Systems Review of Systems: Constitutional : No Weight loss, No Fever, No Chills, No Fatigue, No Malaise ENT/Mouth : No sore throat, No Rhinorrhea Eyes: No Eye Pain, No Swelling, No Redness Cardiovascular : No Chest Pain, No SOB, No Dyspnea on Exertion, No Orthopnea, No Edema, No Palpitations Respiratory : No Cough, No Sputum, No Wheezing Gastrointestinal : No Nausea, No Vomiting, No Diarrhea, No Constipation, No abdominal Pain, No Hematochezia, No Melena Genitourinary : No Dysuria, No Urinary Frequency, No Hematuria, Musculoskeletal : No joint pain, No Myalgias, No Joint Swelling Skin : No Skin Lesions, No rash Neuro : No Weakness, No Numbness, No Dizziness, No Headache All other systems reviewed and are negative Yes all other systems are reviewed and are negative [facility] Social History Social History Advance Directives: No Advance Directives Information Provided: No Physical Exam ED Vital Signs: Vital Signs - 24 hr 05/14/23 13:31 Temperature 98.4 F Pulse Rate 78 Respiratory Rate 16 Blood Pressure 118/68 Pulse Oximetry 98 Oxygen Delivery Method Room Air BMI result Body Mass Index 15.9 vss Appearance: Alert.? Oriented X3.? No acute distress.? Head: Normocephalic, atraumatic, no step-offs or deformities Eyes: Pupils equal, round and reactive to light.? ENT: Pharynx erythematous.?Erupting 3rd molar on the left lower jaw. External ears normal, TMs normal bilaterally and EAC's normal. No pain with manipulation of external ears bilaterally. No mastoid tenderness. Neck: Anterior cervical lymphadenopathy. Normal inspection.? Neck supple.? CVS: Normal heart rate and rhythm.? Pulses normal.? Respiratory: No respiratory distress.? Breath sounds normal.? Abdomen: Soft and nontender.? Skin: Skin warm and dry.? Normal skin color.? Normal skin turgor.? Extremities: No lower extremity edema.? No calf ttp. 5/5 strength to bilateral upper and lower extremities Back: No midline tenderness, no C-spine tenderness, full range of motion, no CVA tenderness bilaterally Neuro: Oriented X 3.? No motor deficit.? No sensory deficit. Medical Decision Making Medical Decision Making MDM Narrative: 22-year-old male presenting complaint of an ulcer in the back of my throat x 1.5 weeks with associated sore throat and headache PE w/ erythematous pharynx, anterior cervical lymphadenopathy, erupting 3rd molar on the left lower jaw Serology negative Likely viral pharyngitis vs. aphthous ulcer vs. molar eruption. Unlikely strep pharyngitis, mononucleosis, periapical abscess, peritonsilar abscess, and threatened airway. Differential Diagnosis Differential Diagnoses: The differential diagnosis associated with the presentation includes Likely viral pharyngitis vs. aphthous ulcer vs. molar eruption. Unlikely strep pharyngitis, mononucleosis, periapical abscess, peritonsilar abscess, and threatened airway. Lab Data Labs: Lab Results 05/14/23 Range/Units 13:36 S. pyogenes GrpA SOFIA Negative (Negative) Discharge Plan Discharge Clinical Impression: Pain of molar, Acute viral pharyngitis Patient Disposition: Home, Self-Care Instructions: Pharyngitis (ED), Toothache (ED) Additional Instructions: Use salt water gargles as needed for pain relief. Follow up with a dentist as soon as possible. Prescriptions: No Action cefuroxime axetil 500 mg tablet 500 mg PO Q12H 10 Days Qty: 20 0RF Referrals: Physician,None [Primary Care Provider] - 2 days
== END 2023-05-14 15:32 | disposition home or self-care (01) ==
PROVIDERS: Physician Assistant; Emergency Provider Emergency Medicine Emergency Medical Services
DX: J02.9 Acute pharyngitis, unspecified (principal); K08.89 Other specified disorders of teeth and supporting structures
CPT/HCPCS: 87651; 99283

== ENCOUNTER 2025-02-16 14:52 | Outpatient (REF) | payer OTHER, SELFPAY ==
[2025-02-17 11:12] LABS: Resp Syncy Virus RNA Qual PCR NEGATIVE (Negative); SARS COV2 PCR INHOUSE NEGATIVE (Negative)
== END 2025-02-16 14:53 | disposition home or self-care (01) ==
LOC: HO.LAB 14:52
PROVIDERS: Physician Assistant
DX: R09.89 Other specified symptoms and signs involving the circulatory and respiratory systems (principal); J02.9 Acute pharyngitis, unspecified; Z13.89 Encounter for screening for other disorder
CPT/HCPCS: 87637; 87880

== ENCOUNTER 2025-02-16 14:52 | Outpatient (AMB) | payer OTHER, SELFPAY ==
--- NOTE | 2025-02-16 15:02 | MHC.OFFWIV ---
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 - Sore throat for one week with neck discomfort. - No fever, cough, ear pain, sinus pain, or breathing difficulties reported. - Negative rapid strep test. - Ineffective self-medication with NyQuil. - COVID-19 test conducted due to local outbreak. Physical Exam General: Cooperative, healthy appearing, comfortable and no acute distress Orientation/consciousness: Patient oriented x3 Limitations: No limitations Head: Normal to inspection Ears: Hearing grossly normal bilaterally, external ears normal and TM's normal bilaterally Nose: Normal external nose present, Normal nares present and No nasal discharge present Face and sinus: Normal facial exam and Yes sinuses nontender Mouth: Normal oral and palatal mucosa present and moist mucous membranes Throat: Yes tonsils normal, Yes uvula midline. Posterior oropharynx erythema, no exudates Eyes: Appearance normal, both eyes and all related structures Neck: Normal visual inspection, full ROM Respiratory: Normal respiratory effort, able to speak in complete sentences, no respiratory distress, not tachypneic, no tripod positioning and no use of accessory muscles Skin: No rashes or lesions noted Neuro: Patient oriented x3 Extremities: Normal to inspection and Yes no clubbing, cyanosis or edema [facility] Social History Patient Tobacco Use Status: Never used Tobacco Review of Systems Const All systems reviewed & are unremarkable except as noted in HPI and below Physical Exam Vital Signs: Last Vital Signs Temp 98.2 F 02/16/25 15:04 Pulse 77 02/16/25 15:04 BP 112/66 02/16/25 15:04 Pulse Ox 96 02/16/25 15:04 Oxygen Delivery Method Room Air 02/16/25 15:04 BMI result Body Mass Index 16.8 Results AMB Rapid Strep AMB Rapid Strep Negative Last Edit by Naheed Bruno MA on 02/16/25 15:29 Results Reviewed Results Reviewed: Laboratory Last Values Strep Scn Rapid Clinic Negative 02/16/25 15:15 Assessment & Plan Assessment & Plan (1) Acute viral pharyngitis: Code(s): J02.9 - Acute pharyngitis, unspecified Plan: Plan - Rapid strep negative - Await COVID-19 test results; notify patient upon availability. - Prescribe ibuprofen 600 mg every eight hours for pain management. - Advise use of cold liquids and numbing throat sprays for symptom relief. Patient was informed and verbally consented to the use of an ambient scribe for clinic note documentation during this visit Orders: Orders AMB Rapid Strep Screen Today Heather Henriquez PA-C Z13.9 - Encounter for screening, unspecified SARS-CoV2/FLU/RSV Today April Valdovinos PA-C R09.89 - Other specified symptoms and signs involving the circulatory and respiratory systems Medications: New ibuprofen 600 mg PO Q8H PRN 30 tabs 0RF pain April Valdovinos PA-C Discontinued cefuroxime axetil Discontinued Reason: Patient no longer taking 500 mg PO Q12H 10 days 20 tabs 0RF naproxen Discontinued Reason: Patient no longer taking 500 mg PO BID 14 tabs 0RF Coding Level of Care Code New Pt Level 3 (67437) Diagnoses Acute viral pharyngitis J02.9
[2025-02-16 15:04] VITALS: BP 112/66; PULSE 77; TEMP 36.8; O2SAT 96; BMI 16.8
--- OUTSIDE RECORDS SUMMARY | 2025-02-16 15:19 | XMS_ITS | Clinical Summary ---
Author Organization [employer] Address [address] [facility] [address] [place] [address] Care Team Providers Care Solutions Consultant Name Role Phone Unavailable Primary Care Provider Unavailabl e Allergies Active Allergy Reactions Criticality Noted Date Comments Penicillins Anaphylaxis High 12/11/2021 Medications chlorhexidine (Peridex) 0.12 % solutionIndicat ions:Pericoroni tis Rinse 15 mL in mouth 2 times per day for 2 weeks. Spit, do not swallow. Do not eat or drink anything for 30 minutes after use. 473 mL 3 Active Additional Information Patient not taking.Reported on 11/04/2024 Sod Fluoride-Potass ium Nitrate 1.1-5 % pasteIndication s:Dental caries [place] teeth for 2 minutes, morning and night. Spit, do not rinse. Do not eat or drink anything for 30 minutes following brushing. 112 g 3 3 Active Additional Information Patient not taking.Reported on 11/04/2024 Active Problems No known active problems Encounters Date Type Department Care Team Description 02/16/2025 Travel 02/09/2025 3:00 PM EDT Office Visit [facility] [address] [place] [address] Srinivas Mera DMD 11/19/2024 1:00 PM EDT Office Visit [facility] [address] [place] [address] Shad Ly from Last 3 Months Social History Tobacco Use Types Packs/Day Years Used Date Smoking Tobacco: Former Cigarettes Smokeless Tobacco: Never Tobacco Cessation:Counseling Given: Not Answered Alcohol Use Standard Drinks/Week Comments Not Currently 0 (1 standard drink = 0.6 oz pur e alcohol) Sex and Gender Information Value Date Recorded Sex Assigned at Male 07/04/2023 10:42 AM EST Legal Sex Female 4:11 PM EST Gender Identity Male 07/04/2023 10:42 AM EST Sexual Orientation Choose not to disclose 2022 10:42 AM EST Last Filed Vital Signs Vital Sign Reading Time Taken Comments Blood Pressure 120/78 02/09/2025 3:09 PM EDT Pulse 91 02/09/2025 3:09 PM EDT Temperature - - Respiratory Rate - - Oxygen Saturation - - Inhaled Oxygen Concentration - - Weight - - Height - - Body Mass Index - - Plan of Treatment Upcoming Encounters Date Type Department Care Team (Late st Contact Info) Description 02/16/2025 5:00 PM EDT Office Visit [facility] [address] [place] [address] 03/16/2025 8:45 AM EDT Office Visit [facility] [address] [place] [address] Srinivas Mera, DMD [address] [place] [address] 05/09/2025 8:00 AM EDT Office Visit [facility] [address] [place] [address] Arabella Freeman Health Maintenance Due Date Last Done Comments Depression Screening 2000 HIV Screening 2000 SDOH Screening 2000 Disability Screening 2000 Alcohol/Substance Use Screening 2012 Family Planning (PISQ) 2015 HPV Vaccines (1 - 3-dose series) 2015 Hepatitis C Screening 2018 DTaP/Tdap/Td Vaccines (1 - Tdap) 2019 Hepatitis B Vaccines (1 of 3 - 19+ 3-dose series) 2019 COVID-19 Vaccine (1 - 2023-2 5 season) 2024 Influenza Vaccine (#1) 2025 Dental Oral Exam 05/07/2025 11/04/2024, 06/11/2023 Dental Prophylaxis 05/07/2025 11/04/2024 Dental X-Ray: Bitewings 11/05/2025 11/05/19 25, 06/11/2023 Tobacco Screening 02/09/2026 02/09/2025 Dental X-Ray: Full Mouth 02/11/2028 025, 06/11/2023, 05/21/2023 Zoster Vaccines (1 of 2) 2050 RSV Patients and Patients Aged 60 years or older (1 - 1-dose 75+ series) 2075 HIB Vaccines Aged Out No longer eligi ble based on patient's age to complete this topic Hepatitis A Vaccines Aged Out No long er eligible based on patient's age to complete this topic IPV Vaccines Aged Out No longer eligi ble based on patient's age to complete this topic Meningococcal B Vaccine Aged Out No l onger eligible based on patient's age to complete this topic Meningococcal Vaccine Aged Out No broderick sasha eligible based on patient's age to complete this topic Pneumococcal Vaccine: Pediatrics (0 to 5 Years) and At-Risk Patients (6 to 49) Years Aged Out No longer eligible b ased on patient's age to complete this topic RSV under 20 months Aged Out No longe r eligible based on patient's age to complete this topic Rotavirus Vaccines Aged Out No longer eligible based on patient's age to complete this topic Procedures Procedure Name Priority Date/Time Associated Diagnosis Comments PANORAMIC RADIOGRAPHIC IMAGE Routine 02/09/2025 3:00 PM EDT CONSULTATION - DIAGNOSTIC SERVICE PROVIDED BY DENTIST OR PHYSICIAN OTHER THAN REQUESTING DENTIST OR PHYSICIAN Routine 02/09/2025 3:00 PM EDT 4 DO RESIN-BASED COMPOSITE - 2 SURF, POSTERIOR Routine 11/19/2024 1:00 PM EDT 3 O RESIN-BASED COMPOSITE - 1 SURF, POSTERIOR Routine 11/19/2024 1:00 PM EDT PROPHYLAXIS - ADULT Routine 11/04/2024 1 :00 PM EDT BITEWINGS - 4 RADIOGRAPHIC IMAGES Routine 11/04/2024 1:00 PM EDT PERIODIC ORAL EVALUATION - ESTABLISHED PATIENT Routine 11/04/2024 1:00 PM EDT from Last 3 Months or Most Recently Relevant to Health Maintenance Insurance DENTAL - [facility] * Guarantor: Masood Ribeiro Account Type Relation to Patient Date of Phone Billing Address Personal/Family Self [address] [place] [id number]
== END 2025-02-16 15:44 | disposition home or self-care (01) ==
PROVIDERS: Visit Provider Physician Assistant
DX: J02.9 Acute pharyngitis, unspecified (principal); Z13.9 Encounter for screening, unspecified

== ENCOUNTER 2025-02-23 15:16 | Outpatient (AMB) | payer OTHER, SELFPAY ==
--- OUTSIDE RECORDS SUMMARY | 2025-02-23 15:18 | XMS_ITS | Clinical Summary ---
Author Organization [employer] Address [address] [place] [address] Care Team Providers Care Hand Bander Name Role Phone Unavailable Primary Care Provider [...] ium Nitrate 1.1-5 % pasteIndication s:Dental caries [place] teeth for 2 minutes, morning and night. Spit, do not rinse. Do not eat or drink anything for 30 minutes following brushing. 112 g 3 3 Active Additional Information Patient not taking.Reported on 11/04/2024 Active Problems No known active problems Encounters Date Type Department Care Team Description 02/16/2025 Travel 02/09/2025 3:00 PM EDT Office Visit [facility] [address] [place] [address] Srinivas Mera DMD from Last 3 Months Social History Tobacco [...] Upcoming Encounters Date Type Department Care Team ([facility] st Contact Info) Description 03/16/2025 8:45 AM EDT Office Visit [facility] [address] [place] [address] Srinivas Mera, DMD [address] [place] [address] 05/09/2025 8:00 AM EDT Office Visit [facility] [address] [place], [place] [id number] Arabella Freeman Health Maintenance Due Date Last [...] OR PHYSICIAN Routine 02/09/2025 3:00 PM EDT PROPHYLAXIS - ADULT Routine 11/04/2024 1 :00 PM EDT BITEWINGS - 4 RADIOGRAPHIC IMAGES Routine 11/04/2024 1:00 PM EDT PERIODIC ORAL EVALUATION - ESTABLISHED PATIENT Routine 11/04/2024 1:00 PM EDT from Last 3 Months or Most Recently Relevant to Health Maintenance Insurance DENTAL - [facility]
[2025-02-23 16:01] VITALS: BP 110/52; PULSE 81; TEMP 36.9; O2SAT 97; BMI 16.8
--- NOTE | 2025-02-23 16:01 | AM.OFFWIN_ITS ---
Intake Vital Signs 02/23/25 16:01 Height 6 ft 1 in Weight 127 lb BMI 16.8 BP 110/52 L Blood Pressure Location Rt brachial Position Sitting Pulse 81 Pulse Source Pulse Oximeter Temp 98.4 F Temp Source Oral Pulse Oximetry (%) 97 Oxygen Delivery Method Room Air Intake Visit Reasons: EP Difficulty eating, not feeling well Intake Note: presents with sore throat and pain eating/drinking. Patient Tobacco Use Status: Never used Tobacco Allergies Penicillins (PCN) Allergy (Verified 02/23/25 16:05) Unknown Do you need a note to return to daycare/school/sports/work: No HPI HPI Comments History of Present Illness Details History - The patient is a 24-year-old male pres enting with persistent sore throat and fatigue x 2 weeks. - The patient initially presented with s ore throat and fatigue approximately one week prior to the visit on 02/16. - The sore throat is associated with dif ficulty swallowing and is alleviated by cold drinks. - Symptoms have persisted despite initia l evaluation and negative rapid strep test on 02/16 - The patient was exposed to a COVID-19 positive individual, his girlfriend, but tested negative himself. - ibuprofen was not helpful Physical Exam General: Cooperative, healthy appearing, comfortable and no acute distress Orientation/consciousness: Patient oriented x3 Limitations: No limitations Head: Normal to inspection Ears: Hearing grossly normal bilaterally, external ears normal and TM's normal bilaterally Nose: Normal external nose present, Normal nares present and No nasal discharge present Face and sinus: Normal facial exam and Yes sinuses nontender Mouth: Normal oral and palatal mucosa present and moist mucous membranes Throat: Yes tonsils normal, Yes uvula midline. Posterior oropharynx erythema, no exudates Eyes: Appearance normal, both eyes and all related structures Neck: Normal visual inspection, full ROM Respiratory: Normal respiratory effort, able to speak in complete sentences, Actively coughing, no respiratory distress, not tachypneic, no tripod positioning and no use of accessory muscles Skin: No rashes or lesions noted Neuro: Patient oriented x3 Extremities: Normal to inspection and Yes no clubbing, cyanosis or edema PFSH Social History Patient Tobacco Use Status: Never used Tobacco Review of Systems Const All systems reviewed & are unremarkable except as noted in HPI and below Physical Exam Vital Signs: Last Vital Signs Temp 98.4 F 02/23/25 16:01 Pulse 81 02/23/25 16:01 BP 110/52 L 02/23/25 16:01 Pulse Ox 97 02/23/25 16:01 Oxygen Delivery Method Room Air 02/23/25 16:01 BMI result Body Mass Index 16.8 Assessment & Plan Assessment & Plan (1) Acute pharyngitis: Code(s): J02.9 - Acute pharyngitis, unspecified Qualifiers: Pharyngitis/tonsillitis etiology: streptococcus Qualified Code(s): J02.0 - Streptococcal pharyngitis Plan: Plan - Rapid strep negative again, however will treat as symptoms are persistent, ibuprofen not helping. clinic - Centor score 3, will presume strep as probability is 28-35%. - Initiate treatment for streptococcal pharyngitis with a cephalosporin, considering the patient's penicillin allergy. Patient was informed and verbally consented to the use of an ambient scribe for clinic note documentation during this visit Medications: New cephalexin 500 mg PO Q12H 20 caps 0RF 10 days Coding Level of Care Code New Pt Level 3 (12330) Diagnoses Acute streptococcal pharyngitis J02.0 Pharyngitis/tonsillitis etiology: streptococcus
== END 2025-02-23 16:31 | disposition home or self-care (01) ==
PROVIDERS: Visit Provider Physician Assistant
DX: J02.0 Streptococcal pharyngitis (principal)

== ENCOUNTER → 2025-02-23 15:16 | Outpatient (BNVA) | payer OTHER, SELFPAY | PROVIDERS: Visit Provider Physician Assistant | DX: J02.0 Streptococcal pharyngitis (principal); R53.83 Other fatigue | CPT/HCPCS: 87880 ==